=== PATIENT | male | born 1975 | race Caucasian/White ===

== ENCOUNTER 2018-12-05 21:45 | Emergency (ER) | payer OTHER ==
[~2018-12-05] VITALS: Ht 170.2 cm; Wt 86.4 kg
[2018-12-05] MEDS ORDERED: SOD CHLORIDE 0.9% 1,000 ML IV STA ×2 (21:47→22:07)
[2018-12-05 21:53] VITALS: Ht 170.2 cm; Wt 86.4 kg
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
[2018-12-05] MEDS ORDERED: SILVER SULFADIAZINE 1% 25 GM CR TOP ONE (23:30)
[2018-12-06 01:20] VITALS: BP 145/95; PULSE 99; RESP 16
== END 2018-12-06 01:22 | disposition home or self-care (01) ==
LOC: E/R 21:45
DX: G40.909 Epilepsy, unspecified, not intractable, without status epilepticus (principal); S01.21XA Laceration without foreign body of nose, initial encounter; T22.112A Burn of first degree of left forearm, initial encounter; R40.2142 Coma scale, eyes open, spontaneous, at arrival to emergency department; R40.2362 Coma scale, best motor response, obeys commands, at arrival to emergency department; R40.2252 Coma scale, best verbal response, oriented, at arrival to emergency department; X58.XXXA Exposure to other specified factors, initial encounter; Y92.9 Unspecified place or not applicable
CPT/HCPCS: 12011; 16000; 36415; 70450; 80048; 80307; 82962; 84484; 85025; 93005; J7030; Z7502; Z7610